=== PATIENT | female | born 1965 | race Two or more races ===

== ENCOUNTER → 2017-04-16 | Outpatient (CLI) | payer OTHER | LOC: BMCIMAGING 10:15 | PROVIDERS: ATTEND Family Medicine | DX: R07.9 Chest pain, unspecified (principal) ==

== ENCOUNTER → 2017-05-29 | Outpatient (CLI) | payer OTHER | LOC: FIMAGING 10:35 | PROVIDERS: ATTEND Family Medicine | DX: Z12.31 Encounter for screening mammogram for malignant neoplasm of breast (principal) ==

== ENCOUNTER → 2017-07-23 | Outpatient (CLI) | payer OTHER | LOC: CIMAGING 09:36 | PROVIDERS: ATTEND Family Medicine | DX: M79.672 Pain in left foot (principal); M79.89 Other specified soft tissue disorders | CPT/HCPCS: 73630-PO ==

== ENCOUNTER → 2018-06-12 | Outpatient (CLI) | payer OTHER | LOC: CIMAGING 10:08 | PROVIDERS: ATTEND Otolaryngology | DX: J30.9 Allergic rhinitis, unspecified (principal); R51 Headache | CPT/HCPCS: 70486-PO ==